=== PATIENT | male | born 1990 | race Two or more races ===

== ENCOUNTER 2019-02-03 13:37 | Day surgery (SDC) | payer OTHER ==
[2019-02-03] VITALS (12 sets, daily range): BP systolic 87–121; BP diastolic 42–80
[~2019-02-03] VITALS: Ht 167.6 cm; Wt 66.2 kg
--- NOTE | 2019-02-03 07:39 | Operative Note - PDOC ---
Operative Note Operative Note Pre-op Diagnosis: right knee internal deragment Procedure: see op report Post-op Diagnosis: same as pre-op plus Anesthesia: MAC Specimen: none Complications: none Condition: stable Estimated Blood Loss: none Implant(s) used?: No Stewart Spencer MD Feb 03, 2019 07:39
--- NOTE | 2019-02-03 07:39 | Pre-Procedure Note/Attestation ---
Pre-Procedure Note/Attestation Complete Prior to Procedure Planned Procedure: right Procedure Narrative: knee diagnosctic arthroscopy, possoble menisectomy, possible synovectomy Indications for Procedure Pre-Operative Diagnosis: right knee internal deragment Attestation I attest that I discussed the nature of the procedure; its benefits; risks and complications; and alternatives (and the risks and benefits of such alternatives ), prior to the procedure, with the patient (or the patient's legal bilingual call center representative). I attest that, if there was a reasonable possibility of needing a blood transfusion, the patient (or the patient's legal bilingual call center representative) was given the [facility] standardized written summary, pursuant to the [place] Blood Safety Act ([place] Health and Safety Code # 1645, as amended). I attest that I re-evaluated the patient just prior to the surgery and that there has been no change in the patient's H&P, except as documented below: Stewart Spencer MD Feb 03, 2019 07:39
--- NOTE | 2019-02-03 13:33 | Anethesia Preoperative Eval ---
Anesthesia Pre-op PMH/ROS General Date of Evaluation: Feb 03, 2019 Anesthesiologist: Bertin ASA Score: ASA 1 Mallampati Score Class I : Soft palate, uvula, fauces, pillars visible Class II: Soft palate, uvula, fauces visible Class III: Soft palate, base of uvula visible Class IV: Only hard plate visible Mallampati Classification: Class I Surgeon: Tj Diagnosis: right knee pain Surgical Procedure: right knee arthrscopy Anesthesia History: none Family History: no anesthesia problems Allergies: Coded Allergies: PEACH (Verified Allergy, Severe, 02/02/19) WHOLE BODY TURNS RED, FACE GETS SWOLLEN Medications: see eMAR Patient NPO?: Yes NPO Date: Feb 02, 2019 NPO Time: 22:00 Past Medical History Cardiovascular: Denies: HTN, CAD, PR, valve dz, arrhythmia, other Pulmonary: Denies: asthma, COPD, JAYDON, other Gastrointestinal/Genitourinary: Denies: GERD, CRI, ESRD, other Neurologic/Psychiatric: Denies: dementia, CVA, depression/anxiety, TIA, other Endocrine: Denies: DM, hypothyroidism, steroids, other HEENT: Denies: cataract (L), cataract (R), glaucoma, [place] (L), [place] (R), other Hematology/Immune: Denies: anemia, DVT, bleeding disorder, other Musculoskeletal/Integumentary: Denies: OA, RA, DJD, DDD, edema, other PSxH Narrative: denies Anesthesia Pre-op Phys. Exam Physician Exam see chart Constitutional: NAD Cardiovascular: RRR Respiratory: CTA Airway Exam Mallampati Score: Class I MO: full ROM: full Teeth: intact Anesthesia Pre-op A/P Labs see chart Risk Assessment & Plan Assessment: ASA I Plan: GA Status Change Before Surgery: No Pre-Antibiotics Drug: Ancef 1g Given Within 1 Hr of Incision: Yes Candy Ramirez MD Feb 03, 2019 13:33
[~2019-02-03 13:37] MED LIST: D5 1/2NS 1,000 ML IV SCH; HYDROcodone/Acetamin 5/325 tab ORAL PRN; HYDROmorphone 1mg/ml Carpuject SUBQ PRN; LR 1000ml 1,000 ML IVLG SCH; NKM; Tylenol #3 tab (300mg/30mg) ORAL PRN; ceFAZolin 1gm IVPB IVPB ONE; celeBREX 200mg Cap **SURGERY PATIENTS ONLY ORAL ONE; oxyCONTIN 20mg tab ORAL ONE
[2019-02-03] MEDS ORDERED: LORazepam Inj 2mg/ml 1ml IV PRN (13:45)
[2019-02-03] MEDS ORDERED: fentaNYL 100 mcg/2 mL IV PRN (13:45)
[2019-02-03] MEDS ORDERED: Ketorolac 30mg Inj IV PRN (13:45)
[2019-02-03] MEDS ORDERED: Midazolam 2mg/2ml Inj IVP PRN (13:45)
[2019-02-03] MEDS ORDERED: Hydromorphone 0.5mg/0.5ml inj IVP PRN (13:45)
[2019-02-03] MEDS ORDERED: DiphenhydrAMINE 50mg/ml Inj IVP PRN (13:45)
[2019-02-03] MEDS ORDERED: Metoclopramide 10mg/2ml Inj IVP PRN (13:45)
[2019-02-03] MEDS ORDERED: oxyCONTIN 20mg tab ORAL ONE (13:58)
[2019-02-03] MEDS ORDERED: celeBREX 200mg Cap **SURGERY PATIENTS ONLY ORAL ONE (13:58)
[2019-02-03] MEDS ORDERED: Lidocaine 1% MPF 10mg/ml 5ml ONE (14:31)
[2019-02-03] MEDS ORDERED: Propofol 200mg/20ml IV ONE (14:31)
[2019-02-03] MEDS ORDERED: Kenalog-10 5ml Inj ONE (14:35)
[2019-02-03] MEDS ORDERED: Bupivacaine w/Epi 0.5% 30ml Vial INJ ONE (14:36)
[2019-02-03] MEDS ORDERED: Duramorph PF 5mg/10ml amp ONE (14:36)
[2019-02-03] MEDS ORDERED: Bupivacaine 0.25% Inj 30ml INJ ONE (14:36)
[2019-02-03] MEDS ORDERED: Lidocaine 1% 10mg/ml/Epi 0.005mg/ml 30ml vial INJ ONE (14:36)
[2019-02-03] MEDS ORDERED: LR 1000ml ONE (15:00)
[2019-02-03] MEDS ORDERED: NS Irrig 2000ml IRRIG ONE (15:00)
[2019-02-03] MEDS ORDERED: Sterile Water Irrig 1000ml IRRIG ONE (15:00)
[2019-02-03] MEDS ORDERED: NS Irrig 4000ml IRRIG ONE (15:41)
[2019-02-03] MEDS ORDERED: Ketorolac 30mg Inj IM ONE (15:43)
--- NOTE | 2019-02-03 16:01 | 48 Hour Post Anesthesia Eval ---
Post Anesthesia Evaluation Procedure: Right knee arthroscopy Date of Evaluation: Feb 03, 2019 Airway: patent Nausea: No Vomiting: No Pain Intensity: 0 Hydration Status: adequate Cardiopulmonary Status: at baseline Mental Status/LOC: patient returned to baseline Post-Anesthesia Complications: 0 Follow-up care needed: ready to discharge Candy Ramirez MD Feb 03, 2019 16:01
--- NOTE | 2019-02-03 16:01 | Immediate Post-Op Evaluation ---
Immediate Post-Op Evalulation Immediate Post-Op Evalulation Procedure: Right knee arthroscopy Date of Evaluation: Feb 03, 2019 Time of Evaluation: 16:01 IV Fluids: 500 Blood Products: 0 Estimated Blood Loss: min Urinary Output: 0 Blood Pressure Systolic: 87 Blood Pressure Diastolic: 47 Pulse Rate: 81 Respiratory Rate: 16 O2 Sat by Pulse Oximetry: 100 Temperature (Fahrenheit): 97.2 Pain Score (1-10): 0 Nausea: No Vomiting: No Complications 0 Patient Status: awake, reacts, patent, none Hydration Status: adequate Drug: ancef 1g Given Within 1 Hr of Incision: Candy Mcgarry MD Feb 03, 2019 16:00
--- NOTE | 2019-02-03 20:15 | Operative Note - Dictated ---
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 SURGEON: Stewart Spencer M.D. ANESTHESIA: General. INDICATIONS FOR PROCEDURE: The patient is a pleasant 28-year-old gentleman, who had a significant injury to the right knee and subsequently continued to have knee pain. He had MRI, which showed possible meniscal pathology. He elected to undergo right knee arthroscopy, diagnostic arthroscopy, possible meniscectomy, synovectomy, and chondroplasty. Risks, limitations, expectations, and complications of procedure were discussed in detail. All questions addressed. DESCRIPTION OF PROCEDURE: After informed consent was obtained, the patient was brought to the operating room. The patient was placed under monitored anesthesia control. Right leg was prepped and draped in usual fashion. Ancef was administered. Inferolateral stab incision was then made. Trocar was introduced to the knee joint. the knee was performed. No chondral damage. The patellofemoral compartment, hypertrophic fat pad syndrome, retropatellar space area. Medial gutter was entered. Medial compartment was entered, freed from meniscal chondral damage, intercondylar notch, hypertrophic ligamentum mucosum, and fat pad. Medial working was established and synovectomy extending from the medial compartment intercondylar notch and lateral compartment was performed. ACL was probed and noted to be intact. Lateral compartment was entered free of meniscal chondral damage. Camera was repositioned into the patellofemoral compartment. Synovectomy and excision of fat pad was completed. Camera was then placed in the anterior medial viewing portal and synovectomy and excision of fat pad to the lateral gutter was completed. Once that was done, the instruments were removed. Portal sites were closed with 3-0 Monocryl sutures. Steri-Strips and a sterile dressing were applied. ESTIMATED BLOOD LOSS: None. COMPLICATIONS: None. SPECIMENS: None. IMPLANTS: None. Stewart Spencer M.D. DR: Luis JOB#: [id number] CC:
== END 2019-02-03 17:45 | disposition home or self-care (01) ==
LOC: SUR 13:37
DX: M23.91 Unspecified internal derangement of right knee (principal); M79.4 Hypertrophy of (infrapatellar) fat pad
CPT/HCPCS: 29876; J0690; J1885; J2250; J2704; J3010; J3301; J3490; 94003; 94150